=== PATIENT | female | born 1930 | race Caucasian/White ===

== ENCOUNTER 2018-05-15 15:32 | Inpatient (IN) | payer OTHER ==
[2018-05-15] MEDS ORDERED: MORPHINE 4 MG/ML SYR ONE (16:28)
[2018-05-15 16:43] LABS: Protime INR 1.11
[2018-05-15 16:45] LABS: Absolute Lymphocytes (CBC) 1.6 K/uL (0.7-4.9); Absolute Monocytes 0.4 K/uL (0.1-1.3); Absolute Neutrophil 4.4 K/uL (1.8-8.0); Basophils % 0.6 % (0-1.3); Eosinophils % 0.3 % (0-4.4); Hematocrit 28.5 % (36.0-45.0); Lymphocytes % 24.8 % (15.3-44.8); MCH 35.4 pg (27.0-35.0); MPV 7.3 fL (7.6-11.3); Monocytes % 6.1 % (3.3-12.3); RBC Red Blood Cell Count 2.74 M/uL (3.86-4.86)
--- NOTE | 2018-05-15 16:48 | RAD REPORT ---
EXAM DESCRIPTION: US - Extremity Venous Uni Ltd - 05/15/2018 4:43 pm CLINICAL HISTORY: PAIN Leg swelling and edema. COMPARISON: Extrem Venous W Compress Que dated 06/17/2016 FINDINGS: Right lower extremity venous system was interrogated with Doppler technique. Normal flow, compressibility and augmentation was noted. There is no DVT present. IMPRESSION: No evidence of right lower extremity deep venous thrombosis.
[2018-05-15 17:09] LABS: Bilirubin Direct 0.2 mg/dL (0-0.2); Bilirubin Total 0.8 mg/dL (0.2-1.0); Magnesium 1.9 mg/dL (1.8-2.4); Protein, Total 9.1 g/dL (6.4-8.2); Troponin (Emerg Dept Use Only) 0.02 ng/mL (0.0-0.045)
--- NOTE | 2018-05-15 17:14 | RAD REPORT ---
EXAM DESCRIPTION: RAD - Chest Single View - 05/15/2018 5:05 pm CLINICAL HISTORY: CHEST PAIN Chest pain. COMPARISON: Chest Single View dated 03/09/2016; CHEST SINGLE VIEW dated 10/13/2015; CHEST SINGLE VIEW da sam 09/03/2012; CHEST PA AND LAT 2 VIEW dated 06/09/2006 FINDINGS: Portable technique limits examination quality. The lungs are emphysematous. The heart is mildly enlarged in size. Soft tissue opacity seen along the left lateral thoracic cage with evidence underlying rib destruction.This could be related to a destr uctive rib lesion. CT imaging is pending at the time of this dictation.
--- NOTE | 2018-05-15 17:40 | EKG ---
Test Date: 2018-05-15 Test Time: 16:42:13 Bituminous Paving Machine Operator: AINSLEY MEASUREMENT RESULTS: Intervals: Rate: 83 VA: QRSD: 108 QT: 360 QTc: 423 [place]: P: VA: QRS: -29 T: 70 INTERPRETIVE STATEMENTS: Atrial fibrillation Abnormal ECG Compared to ECG 10/27/2016 09:07:35 SINUS BRADYCARDIA IS NO LONGER PRESENT Electronically Signed On 05-15-18 17:39:24 CDT by Asa Dai
--- NOTE | 2018-05-15 17:49 | EDPHYS ---
Physician Documentation [facility] Name: Kaden Hankins Age: 88 yrs Sex: Female : 1930 Arrival Date: 05/15/2018 Time: 15:36 Bed 27 Private MD: Glen Houston F ED Physician Michael Dominguez HPI: 05/15 17:35 This 88 yrs old Female presents to ER via Wheelchair with complaints of Pain gs All Over. 17:35 The patient presents with pain. The complaints affect the right calf. Onset: The gs symptoms/episode began/occurred 3 day(s) ago, and became worse and became persistent. Modifying factors: the symptoms are aggravated by movement. Associated signs and symptoms: Pertinent positives: back pain, flank pain. Severity of symptoms: At their worst the symptoms were severe, in the emergency department the symptoms are unchanged. The patient has experienced similar episodes in the past, multiple times. Historical: - Allergies: 15:39 Sulfa (Sulfonamide Antibiotics); aa5 - Home Meds: 15:58 amlodipine 10 mg tab 1 tab once daily [Active]; aspirin 81 mg Oral chew 1 tab once rv daily [Active]; benicar [Active]; cetirizine 10 mg Oral tab 1 tab once daily [Active]; Decadron Oral 40 mg every tuesday [Active]; Dexamethasone Oral 5 tabs on days 1,8,15,22, of each chemo cycle. [Active]; esomeprazole magnesium 40 mg Oral cpDR 1 cap once daily [Active]; hydralazine 50 mg Oral tab 1 tab TID [Active]; hydrochlorothiazide 12.5 mg Oral cap 1 cap once daily [Active]; levothyroxine 50 mcg tab 1 tab once daily [Active]; metoprolol tartrate 100 mg Oral tab 1 tab 2 times per day [Active]; Nexium 40 mg Oral cpDR 1 cap once daily [Active]; omeprazole 40 mg Oral cpDR 1 cap once daily [Active]; pravastatin 40 mg Oral tab 1 tab once daily [Active]; Revlimid 10 mg Oral cap 1 cap once daily [Active]; sotalol 80 mg Oral tab 1 tab once daily [Active]; tramadol 50 mg Oral tab 1 tab every 8 hours. [Active]; valsartan 320 mg Oral tab 1 tab once daily [Active]; - PMHx: 15:39 Heart Murmur; Hypertension; Hypothyroidism; myeloma; Oral chemotherapy; aa5 - PSHx: 15:58 Cholecystectomy; Hernia repair; rv - Immunization history:: Pneumococcal vaccine is not up to date, Flu vaccine is not up to date. - Social history:: Smoking status: Patient/guardian denies using tobacco. - Ebola Screening: : No symptoms or risks identified at this time. ROS: 17:35 All other systems are negative. gs Exam: 17:35 Head/Face: Normocephalic, atraumatic. Eyes: Pupils equal round and reactive to light, gs extra-ocular motions intact. Lids and lashes normal. Conjunctiva and sclera are non-icteric and not injected. Cornea within normal limits. Periorbital areas with no swelling, redness, or edema. ENT: Nares patent. No nasal discharge, no septal abnormalities noted. Tympanic membranes are normal and external auditory canals are clear. Oropharynx with no redness, swelling, or masses, exudates, or evidence of obstruction, uvula midline. Mucous membranes moist. Neck: Trachea midline, no thyromegaly or masses palpated, and no cervical lymphadenopathy. Supple, full range of motion without nuchal rigidity, or vertebral point tenderness. No Meningismus. Chest/axilla: Normal chest wall appearance and motion. Nontender with no deformity. No lesions are appreciated. Respiratory: Lungs have equal breath sounds bilaterally, clear to auscultation and percussion. No rales, rhonchi or wheezes noted. No increased work of breathing, no retractions or nasal flaring. Abdomen/GI: Soft, non-tender, with normal bowel sounds. No distension or tympany. No guarding or rebound. No evidence of tenderness throughout. Back: No spinal tenderness. No costovertebral tenderness. Full range of motion. Skin: Warm, dry with normal turgor. Normal color with no rashes, no lesions, and no evidence of cellulitis. Neuro: Awake and alert, GCS 15, oriented to person, place, time, and situation. Cranial nerves II-XII grossly intact. Motor strength 5/5 in all extremities. Sensory grossly intact. Cerebellar exam normal. Normal gait. 17:35 Constitutional: The patient appears alert, awake, uncomfortable. 17:35 Cardiovascular: Rate: normal, Rhythm: irregularly irregular, Pulses: no pulse deficits are appreciated, Heart sounds: normal, Edema: is not appreciated. 17:35 ECG was reviewed by the Attending Physician. 17:35 Musculoskeletal/extremity: Pulses: are normal with no appreciated deficits, Sensation intact. DVT Exam: no swelling, no appreciated bluish discoloration, no erythema, tenderness, that is moderate, of the right leg. Vital Signs: 15:40 BP 168 / 86; Pulse 98; Resp 18 S; Temp 98.9(TE); Pulse Ox 99% on R/A; Weight 49.44 kg aa5 (R); Height 5 ft. 2 in. (157.48 cm) (R); Pain 10/10; 18:16 BP 117 / 89; Pulse 109; Resp 18; Pulse Ox 96% on R/A; tl3 19:02 BP 119 / 95; Pulse 80; Resp 18; Pulse Ox 100% on R/A; tl3 15:40 Body Mass Index 19.94 (49.44 kg, 157.48 cm) aa5 MDM: 16:07 Patient medically screened. 05/15 16:10 Order name: Basic Metabolic Panel; Complete Time: 17:29 05/15 16:10 Order name: CBC with Diff; Complete Time: 17:11 05/15 16:10 Order name: LFT's; Complete Time: 17:29 05/15 16:10 Order name: Magnesium; Complete Time: 17:29 05/15 16:10 Order name: NT PRO-BNP; Complete Time: 17:29 05/15 16:10 Order name: PT-INR; Complete Time: 17:11 05/15 16:10 Order name: Troponin (emerg Dept Use Only); Complete Time: 17:29 05/15 16:10 Order name: XRAY Chest (1 view); Complete Time: 17:29 05/15 16:10 Order name: CPK; Complete Time: 17:29 05/15 17:55 Order name: Basic Metabolic Panel EDMI 05/15 17:55 Order name: Basic Metabolic Panel EDMI 05/15 19:36 Order name: Urine Dipstick--Ancillary (enter results) ms 05/15 20:05 Order name: Urine Dipstick-Ancillary EDMI 05/15 16:10 Order name: EKG; Complete Time: 16:11 05/15 16:10 Order name: Cardiac monitoring; Complete Time: 16:38 gs 05/15 16:10 Order name: EKG - Nurse/Tech; Complete Time: 16:38 gs 05/15 16:10 Order name: IV Saline Lock; Complete Time: 16:38 gs 05/15 16:10 Order name: Labs collected and sent; Complete Time: 16:38 gs 05/15 16:10 Order name: O2 Per Protocol; Complete Time: 16:38 gs 05/15 16:10 Order name: O2 Sat Monitoring; Complete Time: 16:38 gs 05/15 16:14 Order name: US Extremity Venous Unilateral Ltd; Complete Time: 17:11 gs 05/15 17:43 Order name: Chest Abd Pelvis Wo Con; Complete Time: 18:33 EDMS 05/15 17:55 Order name: CONS Physician Consult EDMS 05/15 17:55 Order name: Regular EDMS EC:35 Rate is 83 beats/min. Rhythm is regular. QRS interval is prolonged. QT interval is gs normal. T waves are Normal. No ST changes noted. Clinical impression: Atrial Fibrillation. Interpreted by me. Administered Medications: 16:24 Drug: morphine 2 mg Route: IVP; Site: right antecubital; rv 18:18 Follow up: Response: Pain is decreased tl3 20:16 Follow up: Response: Pain is decreased rv 18:17 Drug: Pamidronate 60 mg Route: IV; Rate: calculated rate; Infused Over: 2 hrs; Site: tl3 right antecubital; Delivery: Primary tubing; 19:03 Follow up: IV Status: Infusion continued upon admission tl3 20:15 Follow up: IV Status: Infusion continued upon admission rv 18:18 Drug: NS 0.9% 1000 ml Route: IV; Rate: 125 ml/hr; Site: right antecubital; Delivery: tl3 Primary tubing; 19:03 Follow up: IV Status: Infusion continued upon admission tl3 20:16 Follow up: IV Status: Infusion continued upon admission rv Disposition: 05/15/18 17:49 Hospitalization ordered by Glen Houston for Inpatient Admission. Preliminary diagnosis is Hypercalcemia. - Bed requested for Telemetry/MedSurg (Inpatient). - Status is Inpatient Admission. rv - Condition is Stable. - Problem is new. - Symptoms have improved. UTI on Admission? No Signatures: Dispatcher [employer] EDMI Dari Sykes, RN RN aa5 Danika Dennis RN RN df Micahel Dominguez MD MD Sheela Thomas RN RN tl3 Alonso Kimbrough, RN RN rv Corrections: (The following items were deleted from the chart) 17:43 16:11 Chest Abdomen Pelvis W Con+CT.RAD.BRZ ordered. EDMI EDMI 18:43 17:49 Hospitalization Ordered by Glen Houston MD for Inpatient Admission. Preliminary df diagnosis is Hypercalcemia. Bed requested for Telemetry/MedSurg (Inpatient). Status is Inpatient Admission. Condition is Stable. Problem is new. Symptoms have improved. UTI on Admission? No. 20:18 18:43 05/15/2018 17:49 Hospitalization Ordered by Glen Houston MD for Inpatient rv Admission. Preliminary diagnosis is Hypercalcemia. Bed requested for Telemetry/MedSurg (Inpatient). Status is Inpatient Admission. Condition is Stable. Problem is new. Symptoms have improved. UTI on Admission? No. df
--- NOTE | 2018-05-15 17:49 | ER ---
Nurse's Notes [facility] Name: Kaden Hankins Age: 88 yrs Sex: Female : 1930 Arrival Date: 05/15/2018 Time: 15:36 Bed 27 Private MD: Glen Houston F Diagnosis: Hypercalcemia Presentation: 05/15 15:38 Presenting complaint: Patient states: octavia shoulder pain and right lower back pain that aa5 began 2 days ago. Transition of care: patient was not received from another setting of care. Onset of symptoms was May 2018. Risk Assessment: Do you want to hurt yourself or someone else? Patient reports no desire to harm self or others. Initial Sepsis Screen: Does the patient meet any 2 criteria? No. Patient's initial sepsis screen is negative. Does the patient have a suspected source of infection? No. Patient's initial sepsis screen is negative. Care prior to arrival: None. 15:38 Method Of Arrival: Wheelchair aa5 15:38 Acuity: NAREN 3 aa5 Historical: - Allergies: 15:39 Sulfa (Sulfonamide Antibiotics); aa5 - Home Meds: 15:58 amlodipine 10 mg tab 1 tab once daily [Active]; aspirin 81 mg Oral chew 1 tab once rv daily [Active]; benicar [Active]; cetirizine 10 mg Oral tab 1 tab once daily [Active]; Decadron Oral 40 mg every tuesday [Active]; Dexamethasone Oral 5 tabs on days 1,8,15,22, of each chemo cycle. [Active]; esomeprazole magnesium 40 mg Oral cpDR 1 cap once daily [Active]; hydralazine 50 mg Oral tab 1 tab TID [Active]; hydrochlorothiazide 12.5 mg Oral cap 1 cap once daily [Active]; levothyroxine 50 mcg tab 1 tab once daily [Active]; metoprolol tartrate 100 mg Oral tab 1 tab 2 times per day [Active]; Nexium 40 mg Oral cpDR 1 cap once daily [Active]; omeprazole 40 mg Oral cpDR 1 cap once daily [Active]; pravastatin 40 mg Oral tab 1 tab once daily [Active]; Revlimid 10 mg Oral cap 1 cap once daily [Active]; sotalol 80 mg Oral tab 1 tab once daily [Active]; tramadol 50 mg Oral tab 1 tab every 8 hours. [Active]; valsartan 320 mg Oral tab 1 tab once daily [Active]; - PMHx: 15:39 Heart Murmur; Hypertension; Hypothyroidism; myeloma; Oral chemotherapy; aa5 - PSHx: 15:58 Cholecystectomy; Hernia repair; rv - Immunization history:: Pneumococcal vaccine is not up to date, Flu vaccine is not up to date. - Social history:: Smoking status: Patient/guardian denies using tobacco. - Ebola Screening: : No symptoms or risks identified at this time. Screenin:54 Abuse screen: Denies threats or abuse. Denies injuries from another. Nutritional rv screening: No deficits noted. Tuberculosis screening: No symptoms or risk factors identified. Fall Risk None identified. Assessment: 15:53 General: Appears in no apparent distress. uncomfortable, Behavior is calm, cooperative. rv Pain: Complains of pain in back. Neuro: Level of Consciousness is awake, alert, obeys commands, Oriented to person, place, time, situation. Cardiovascular: Capillary refill < 3 seconds. Respiratory: Airway is patent. GI: No signs and/or symptoms were reported involving the gastrointestinal system. : No signs and/or symptoms were reported regarding the genitourinary system. EENT: No signs and/or symptoms were reported regarding the EENT system. Derm: Skin is intact. 18:16 Reassessment: Patient and/or family updated on plan of care and expected duration. Pain tl3 level reassessed. Patient is alert, oriented x 3, equal unlabored respirations, skin warm/dry/pink. pt anxious about being admitted. 19:02 Reassessment: No changes from previously documented assessment. Patient and/or family tl3 updated on plan of care and expected duration. Pain level reassessed. Patient is alert, oriented x 3, equal unlabored respirations, skin warm/dry/pink. Vital Signs: 15:40 BP 168 / 86; Pulse 98; Resp 18 S; Temp 98.9(TE); Pulse Ox 99% on R/A; Weight 49.44 kg aa5 (R); Height 5 ft. 2 in. (157.48 cm) (R); Pain 10/10; 18:16 BP 117 / 89; Pulse 109; Resp 18; Pulse Ox 96% on R/A; tl3 19:02 BP 119 / 95; Pulse 80; Resp 18; Pulse Ox 100% on R/A; tl3 15:40 Body Mass Index 19.94 (49.44 kg, 157.48 cm) aa5 ED Course: 15:36 Patient arrived in ED. mr 15:36 Glen Houston MD is Private Physician. mr 15:38 Triage completed. aa5 15:38 Arm band placed on. aa5 15:47 Michael Dominguez MD is Attending Physician. gs 15:59 Patient has correct armband on for positive identification. Bed in low position. Call rv light in reach. Side rails up X2. Adult w/ patient. Pulse ox on. NIBP on. 16:20 Inserted saline lock: 20 gauge in right antecubital area, using aseptic technique. rv Blood collected. 16:20 Initial lab(s) drawn, by me, sent to lab. EKG done, by medical chief technician. reviewed by Michael Dominguez MD X-ray(s) taken. ultrasound of LE. 16:42 US Extremity Venous Unilateral Ltd In Process Unspecified. EDMS 16:45 EKG done, by medical chief technician. reviewed by Michael Dominguez MD. sm3 17:05 XRAY Chest (1 view) In Process Unspecified. EDMS 17:48 Glen Houston MD is Hospitalizing Provider. gs 17:50 Sheela Thomas, RN is Primary Nurse. tl3 18:[address] via stretcher. nj 19:01 No provider procedures requiring assistance completed. tl3 20:17 Patient admitted, IV remains in place. intact. rv Administered Medications: 16:24 Drug: morphine 2 mg Route: IVP; Site: right antecubital; rv 18:18 Follow up: Response: Pain is decreased tl3 20:16 Follow up: Response: Pain is decreased rv 18:17 Drug: Pamidronate 60 mg Route: IV; Rate: calculated rate; Infused Over: 2 hrs; Site: tl3 right antecubital; Delivery: Primary tubing; 19:03 Follow up: IV Status: Infusion continued upon admission tl3 20:15 Follow up: IV Status: Infusion continued upon admission rv 18:18 Drug: NS 0.9% 1000 ml Route: IV; Rate: 125 ml/hr; Site: right antecubital; Delivery: tl3 Primary tubing; 19:03 Follow up: IV Status: Infusion continued upon admission tl3 20:16 Follow up: IV Status: Infusion continued upon admission rv Outcome: 17:49 Decision to Hospitalize by Provider. louise 20:16 Admitted to Med/surg accompanied by tech, via stretcher, room 216, with chart, Report rv called to ALVINA 20:16 Condition: good 20:16 Instructed on the need for admit. 20:18 Patient left the ED. rv Signatures: Dispatcher [employer] EDVA Radha Espinoza mr Sykes, Dari, RN RN aa5 Surya Kothari Gregory, MD MD Sheela Thomas RN RN tl3 Ellie Muller 3 Alonso Kimbrough RN RN rv
[2018-05-15] MEDS: NA CHLORIDE 0.9% 1,000 ML IV SCH (18:00)
[2018-05-15] MEDS ORDERED: NA CHLORIDE 0.9% 1,000 ML ONE (18:07)
[2018-05-15] MEDS ORDERED: PAMIDRONATE DISOD 30 MG VIAL IV ONE (18:07)
[2018-05-15] MEDS ORDERED: NA CHLORIDE 0.9% 500 ML ONE (18:12)
--- NOTE | 2018-05-15 18:32 | RAD REPORT ---
EXAM DESCRIPTION: CT - Chest Abd Pelvis Wo Con - 05/15/2018 6:03 pm CLINICAL HISTORY: Chest pain, back pain, shoulder pain, abdominal pain, prior cholecystectomy and he rnia repair, history of multiple myeloma COMPARISON: None. TECHNIQUE: Axial 5 millimeter thick images of the chest abdomen and pelvis were obtained without ora l or IV contrast. All CT scans are performed using dose optimization technique as appropriate and may include automated exposure control or mA/KV adjustment according to patient size. FINDINGS: Scarring changes are present in the lung parenchyma. No acute consolidated infiltrate. Par enchymal scarring changes are present. A few small areas of reticulonodular opacification present. Th claudia could be minimal infiltrative changes. These are minimal. No pneumothorax or pleural effusion. A 3.7 centimeter expansile lesion is present in the lateral left eighth rib. Mediastinal and hilar reg ions show no mass or lymphadenopathy. No cardiomegaly or pericardial effusion. Valve and Coronary ar breonna calcifications are present. Moderate-size hiatal hernia is present. Aorta and pulmonary arterial tree is assessment is limited in the absence of contrast. 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 The liver, spleen and pancreas show no significant findings. Gallbladder is absent. No biliary tree dilatation. No hydronephrosis or obstructing calculus. Bilateral hyperdense and hypodense renal masses are presen t believed to be simple and high protein content cysts. Full assessment is limited in the absence of contrast. Probability of a significant renal finding is felt to be low. No urinary bladder abnormalit y. Uterus and ovaries show no suspicious findings. A 3 centimeter left adrenal mass is present. Atten uation value is less than 8 Hounsfield units which would favor incidental adrenal adenoma. No gastric dilatation or wall thickening. No dilated large or small bowel abnormality. Sigmoid divert iculosis is present. No acute diverticulitis or active GI process seen. No free air, free fluid or in flammatory stranding. No bulky lymphadenopathy. Patient has a 6 centimeter fat only umbilical hernia . Scattered lytic changes are present throughout all aspects of the skeleton including the expansile le bria in the left eighth rib. No compression fracture or pending compression fracture in the spine. No pathologic pelvic fracture. IMPRESSION: Multiple myeloma changes are present throughout the skeleton including an expansile 3.7 centimeter lesion in the lateral left eighth rib. No compression fracture in the spine and no impending fracture identified. No bulky lymphadenopathy seen. Nonacute findings detailed in the body of the report.
[2018-05-15 20:04] LABS: Urine Blood 1+ (NEG); Urine Glucose NEGATIVE (NEG); Urine Protein 2+ (NEG)
[2018-05-15] MEDS: ACETAMINOPHEN 500 MG TAB PO PRN (21:39)
[2018-05-15 23:57] VITALS: BMI 19.9
[2018-05-16] MEDS: NA CHLORIDE 0.9% 1,000 ML IV SCH ×3 (03:42→22:09)
[2018-05-16 05:52] LABS: Potassium 3.6 mmol/L (3.5-5.1)
[2018-05-16] MEDS: ACETAMINOPHEN 500 MG TAB PO PRN (07:59)
[2018-05-16] MEDS ORDERED: LENALIDOMIDE 10 MG PO SCH (12:00)
[2018-05-16] MEDS: AMLODIPINE 10 MG TAB PO SCH (13:08)
[2018-05-16] MEDS: HYDROCODONE/APAP 7.5/325 MG TAB PO PRN ×2 (13:08→22:12)
[2018-05-16] MEDS: SOTALOL HCL 80 MG TAB PO SCH ×2 (13:09→22:08)
[2018-05-16] MEDS: ENOXAPARIN 40 MG/0.4 ML SQ SCH (22:07)
[2018-05-16] MEDS: HYDRALAZINE HCL 25 MG TABLET PO SCH (22:08)
[2018-05-16] MEDS: ATORVASTATIN 10 MG TAB PO SCH (22:08)
[2018-05-17] MEDS: NA CHLORIDE 0.9% 1,000 ML IV SCH ×3 (05:06→20:31)
[2018-05-17] MEDS: LEVOTHYROXINE SOD 0.075 MG TAB PO SCH (05:06)
[2018-05-17] MEDS: HYDROCODONE/APAP 7.5/325 MG TAB PO PRN ×3 (05:06→20:30)
[2018-05-17] MEDS: PANTOPRAZOLE 40MG TABLET PO SCH (06:28)
[2018-05-17 06:40] LABS: Absolute Monocytes 0.4 K/uL (0.1-1.3); Absolute Neutrophil 3.5 K/uL (1.8-8.0); Basophils % 0.5 % (0-1.3); Eosinophils % 3.2 % (0-4.4); Hematocrit 22.3 % (36.0-45.0); Lymphocytes % 19.6 % (15.3-44.8); MCH 35.8 pg (27.0-35.0); MCV 103.2 fL (80-100); MPV 7.6 fL (7.6-11.3); Monocytes % 7.2 % (3.3-12.3); RBC Red Blood Cell Count 2.16 M/uL (3.86-4.86)
[2018-05-17 06:47] LABS: Potassium 3.4 mmol/L (3.5-5.1)
--- NOTE | 2018-05-17 08:34 | HP ---
Date of Admission: 05/15/2018 History Of Present Illness: An 88-year-old female with history of multiple myeloma. I have not seen this patient for about a year and half during which she was seeing the Oncology people here in [place] and following up with them on that. However, she came to emergency room complaining of both shoulders hurting for the past few days more so than she could handle, and she also had some right le g pain. The patient had no fever and no chills. She voiced no other complaints. Review of Systems: Skeletomuscular: As above. Cardiovascular: No complaint. Genitourinary: No complaint. Gastrointestinal: No complaint. Neurological: No complaint. Past Medical History: Includes: 1.As above, multiple myeloma. 2.Hypertension. 3.Hypothyroidism. 4.Gastroesophageal reflux disease. 5.Hyperlipidemia. 6.The patient has had cholecystectomy and hernia repair. Social History: No smoking, alcohol, or drug abuse history. Family History: Noncontributory. Medications: Include amlodipine 10 mg p.o. daily, dexamethasone 40 mg p.o. every , Revlimid 10 mg p.o. daily, levothyroxine 75 mcg p.o. daily, omeprazole 40 mg p.o. daily, pravastatin 40 mg p.o . daily, and sotalol 80 mg p.o. b.i.d. Allergies: SULFA. Physical Examination: Vital Signs: Blood pressure was 190/86, pulse 67, temperature 98.4. Heart: Regular rate and rhythm. Chest: Clear to auscultation. Abdomen: Soft, nontender. No hepatosplenomegaly. Bowel sounds are normoactive. Extremities: No edema. No cyanosis. Peripheral pulses are felt. Neurological Examination: Alert, oriented, nonfocal. Grossly intact. Skeletomuscular: Both shoulders, the patient has some pain in moving them, but no deformity. Diagnostic Data: Chest x-ray showed soft tissue opacity along the left lateral thoracic cage underly ing good . Abdominal and chest and pelvic CT showed multiple myeloma changes throughout th e skeleton with the left eighth rib lesion at 3.7 cm. No compression fracture. No bulk lymphadenopa thy. No acute findings at this time. Electrocardiogram showed atrial fibrillation. Extremities félix ous studies showed no DVT. The patient's hemoglobin 9.7, hematocrit 28.5, MCV 104, platelets 232. Chemistry: Calcium 13.1, it went down to 12. Chloride 111, BUN 54, creatinine 2.1. Urinalysis: 1+ esterase, positive 2+ protei ns. Assessment: 1.Hypercalcemia. 2.Acute renal insufficiency. 3.Multiple myeloma. 4.Atrial fibrillation. 5.Hypertension. 6.Anemia of chronic illness. Plan: 1.We would go ahead. I have started the patient on IV fluids and we will monitor her calcium level if this started to drop. 2.We will put the patient on Lortab 7.5 t.i.d. p.r.n. for shoulder pains and we will go ahead and as k Oncology consult for her multiple myeloma. We will ask Cardiology consult for her atrial fibrillat ion for me is new. 3.We will put the patient on Lovenox and we will monitor her studies, her CBC. 4.We are going to go ahead and also renew her home medicines for chronic medical illnesses. We will put her on hydralazine p.r.n. for uncontrolled hypertension. Look orders for details. MFS/MODL Voice ID: [id number]
[2018-05-17] MEDS: ENOXAPARIN 40 MG/0.4 ML SQ SCH (09:00)
[2018-05-17] MEDS: HYDRALAZINE HCL 25 MG TABLET PO SCH ×4 (09:55→20:29)
[2018-05-17] MEDS: AMLODIPINE 10 MG TAB PO SCH (09:56)
[2018-05-17] MEDS: SOTALOL HCL 80 MG TAB PO SCH ×2 (09:56→20:30)
[2018-05-17] MEDS ORDERED: FUROSEMIDE 20 MG/ 2ML VIAL IV ONE (11:10)
--- NOTE | 2018-05-17 13:01 | PN ---
Subjective: The patient today has no new complaints. Objective: Vital Signs: Blood pressure 195/82, pulse 61, temperature 98.3. Heart: Regular rate and rhythm. Chest: Clear to auscultation. Abdomen: Soft. Benign. Neurological examination: Alert, oriented, nonfocal. Grossly intact. Skeletomuscular exam: No change. Laboratory Data: The patient's hemoglobin this morning is 7.7, hematocrit 22.3, platelets 191. Pota ssium 3.4, BUN 44, creatinine 1.9, calcium down to 10.8. Assessment/plan: 1.Multiple myeloma with bone lytic lesion. Appreciate Hematology/Oncology input. We will follow th e recommendation. We will continue Lortab for pain control. 2.Hypertension in part not controlled due to the IV fluids. We will give 1 dose of Lasix IV 20 mg a nd also will increase hydralazine to 50 mg p.o. t.i.d. and continue the rest of her treatment. 3.We will put the patient on electrolyte protocol. 4.We will transfuse 1 unit of blood. We will stop the patient's Lovenox. She is on sequential comp ression devices for now. We will monitor her hemoglobin and hematocrit. Look orders for details. MFS/MODL Voice ID: [id number] Report ID: [id number]
[2018-05-17] MEDS ORDERED: NA CHLORIDE 0.9% 250 ML ONE (13:22)
[2018-05-17] MEDS ORDERED: MORPHINE 4 MG/ML SYR IV ONE (14:11)
[2018-05-17] MEDS ORDERED: FENTANYL 25 MCG/PATCH TD SCH (14:30)
--- NOTE | 2018-05-17 14:53 | CON ---
Reason For Consult: Atrial fibrillation. History Of Present Illness: Ms. Hankins has had atrial fibrillation in the past. We had her on Betapac e. At some point, she stopped taking it. She has no idea when she stopped. She does not really kno w when she is in atrial fibrillation, but she had some success taking Betapace. We actually had her on 40 mg twice a day. Yesterday Dr. Houston started 80 twice a day. I think that is okay to give, a lthough at the time she goes home, we should probably believe in the history of things, believe that lower doses of medicines are good in 88-year-old people, who are small, and reduce her dose to 40 b.i .d. as an outpatient. She is not a patient who could be anticoagulated. She has bone marrow failure with multiple myeloma. She still has a good platelet count and is taking aspirin and tolerating it well. I am unable to tell from the patient or family members or notes whether she is on any specific chemotherapy agents for her multiple myeloma. Listed but dated as long ago as 2 years ago is Revlim id and dexamethasone. I am not sure if she has been taking those recently or not. Overnight, she aguirre s had a dramatic fall in her hemoglobin. Her hemoglobin today is 7.7. She came to our hospital on t may, this is the . Her chief complaint was pain in the shoulder joints, when she m oves her shoulder joint that hurts a lot. She has never had myocardial infarction or stroke or any v ascular interventions. Uses no tobacco. Does not use alcohol or alcoholic beverages. Physical Examination: General: 5 feet 2, 109 pounds. Alert, oriented. Lungs: Clear. Heart: Irregularly irregular. Vital Signs: Blood pressure 195/82, heart rate 61, but the heart rate on telemetry is more in the 90 s. Recommendation: I think we should continue with the Betapace, see if we can reestablish sinus rhythm . If we cannot, then I would vote for rate control alone and aspirin. Thank you very much for your kind referral of Ms. Hankins. I will follow her with you. EDITA/MARKO Voice ID: [id number] Report ID: [id number]
[2018-05-17 18:55] LABS: Hematocrit 27.4 % (36.0-45.0)
[2018-05-17] MEDS: ATORVASTATIN 10 MG TAB PO SCH (20:30)
--- NOTE | 2018-05-17 20:52 | PN ---
Date of Progress Note: 05/17/2018 Reason For Visit: Hypercalcemia, multiple myeloma. Brief History Of Present Illness: Ms. Hankins is an 88-year-old lady, who is well known to my partner, Dr. Harrison, she has been followed for a diagnosis of multiple myeloma since 2015. She was diagno sed with multiple myeloma in March of 2016 when she presented with severe anemia and hypogammaglobul inemia, a bone marrow biopsy confirmed the diagnosis of multiple myeloma. She was reluctant to under go therapy, but finally did decide to start on Revlimid plus Decadron for her multiple myeloma. Over the past 2 years, she admits to being noncompliant and missing doses of the Revlimid as a result she did have somewhat of a response to therapy. When last seen in clinic on February 01, 2018, overall the monoclonal protein had decreased by more than 50% suggestive of a partial response. She presented to the Emergency Room 2 days ago with complaints of severe generalized bone pain and so me confusion. Calcium level was noted to be elevated at 13 mg/dL, BUN and creatinine were elevated a t 54 and 2.2 respectively. Her hemoglobin was 9.7 g/dL with a normal white count and platelet count. A CT scan of the chest, abdomen and pelvis revealed multiple bony lesions throughout the skeleton w ith an expansile lesion in the left eighth rib. There was no evidence of compression fractures or pa thological fractures. Since hospitalization, she has received pamidronate 60 mg IV and hydration and seems to be feeling be tter. Subjective: Ms. Hankins was receiving a transfusion and resting comfortably when I saw her this evening . She did have a pain earlier on and received morphine IV, which helped. She denies any nausea or v omiting. She admits to not remembering much about this hospitalization. Objective: vital Signs: Reveal that she has been afebrile. Temperature was 98.2 Fahrenheit at noon today, pulse 60, blood pressure 180/74. General: Reveals pallor and a frail elderly lady, in no acute distress. Chest: Clear to auscultation. Heart: Sounds were normal. Extremities: Shows no edema. Assessment And Plan: 1.Hypercalcemia. This is secondary to progressive multiple myeloma. Her calcium levels have been d eclining with hydration and pamidronate, no further intervention is warranted at this time. If she d ecides to pursue further treatment. She will be placed on zoledronic acid q.4 weeks for bone disease as well as control of hypercalcemia. 2.Multiple myeloma, stage III. The patient has been reluctant and noncompliant with therapy since yoli patiño in 2015. I discussed her options going forward. A: Pursue further therapy likely Velcade subcutaneously weekly plus dexamethasone or intravenous carfilzomib plus Decadron or dexamethasone. In either case, she would need known oral therapy. Option B: Would be best supportive care, stacy estrada in the setting of hospice. Ms. Hankins seems to indicate that she was not be interested in treatmen t, though her daughter was noncommittal. I urge them to discuss this as a family and come up with a decision regarding further management. We did discuss that multiple myeloma is not a curable cancer and that the goal of treatment would be to palliate symptoms, prevent complications, and prolong her survival modestly. 3.Anemia. 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 Once ag ain, she is noncompliant with Aranesp. I would suggest to transfuse packed red blood cells to keep h emoglobin at 8 g/dL normal, given her advanced age and comorbidities which includes myeloma. 4.Pain management. She is in significant pain from bony disease. I started her on a fentanyl patch 25 mcg q.72 hours. I would suggest to continue with that. She should be getting hydrocodone/Tyleno l 5/325 1-2 tablets every 4 hours as needed for breakthrough pain. 5.I have discussed the above recommendations with Dr. Houston as well. She may be discharged home o n hospice if that is what she chooses. If she is unable or unwilling to make a decision then she should follow up with Dr. Harrison in clinic on the 24 of May as scheduled. AP/MODL Voice ID: [id number] Report ID: [id number]
[2018-05-18] MEDS: PANTOPRAZOLE 40MG TABLET PO SCH (05:19)
[2018-05-18] MEDS: LEVOTHYROXINE SOD 0.075 MG TAB PO SCH (05:19)
[2018-05-18] MEDS: NA CHLORIDE 0.9% 1,000 ML IV SCH ×2 (05:20→16:00)
[2018-05-18 06:05] LABS: Absolute Lymphocytes (CBC) 1.2 K/uL (0.7-4.9); Absolute Monocytes 0.5 K/uL (0.1-1.3); Absolute Neutrophil 5.1 K/uL (1.8-8.0); Basophils % 0.3 % (0-1.3); Eosinophils % 2.1 % (0-4.4); Hematocrit 26.4 % (36.0-45.0); Lymphocytes % 17.7 % (15.3-44.8); MCV 100.9 fL (80-100); MPV 7.3 fL (7.6-11.3); Monocytes % 7.2 % (3.3-12.3); RBC Red Blood Cell Count 2.61 M/uL (3.86-4.86)
[2018-05-18 06:11] LABS: Potassium 3.4 mmol/L (3.5-5.1)
[2018-05-18] MEDS ORDERED: POTASSIUM CL SA 10 MEQ TAB PO ONE (06:32)
[2018-05-18 09:06] VITALS: O2SAT 97
[2018-05-18] MEDS: HYDRALAZINE HCL 25 MG TABLET PO SCH ×2 (09:13→13:52)
[2018-05-18] MEDS: SOTALOL HCL 80 MG TAB PO SCH (09:13)
[2018-05-18] MEDS: AMLODIPINE 10 MG TAB PO SCH (09:14)
[2018-05-18 15:34] VITALS: BP 119/62; TEMP 98.6
--- NOTE | 2018-05-18 20:20 | PN ---
Subjective: The patient has no new complaints. Objective: Vital Signs: Blood pressure 120/60, pulse 64, temperature 98.6. Heart: Regular rate and rhythm. Chest: Clear to auscultation. Abdomen: Soft. Benign. Neurologic: Alert, oriented, intact. Extremities: No edema. No cyanosis. Laboratory Data: The patient's hemoglobin 9.2, hematocrit 26.4, and platelet 2014. Chemistry; BUN 3 9, creatinine 1.80, potassium 3.4, calcium 9.9. Assessment And Plan: 1.Hypercalcemia, resolved. 2.Multiple myeloma. I have talked with Dr. Faith, Oncology/Hematology on the patient's condition. S he informed me that this patient has not been following up with treatments and care with Oncology and that her son and daughter make decisions for her about her health care, and at this point, they have to decide if they want her only treatment for comfort, we will ask hospice care. However, they want to pursue active treatment, they need to make sure that they have the patient follow up with the onc ology team in the oncology clinic for her multiple myeloma for medications and also to keep up with h er hypercalcemia and liver medications with infusions to lower the calcium when that happens. Otherw ise, if they choose hospice, then we will go that route. I have explained that to the patient and pe nding the patient and her children's decision on this, we will continue current treatment. Her blood pressure is better controlled at this time and s he is clinically stable. MFS/MODL Voice ID: [id number] Report ID: [id number]
[2018-05-19 02:58] LABS: Immunoglobulin A 19 mg/dL (81-463); Immunoglobulin G 3053 mg/dL (694-1618); Immunoglobulin M 5 mg/dL (48-271)
--- NOTE | 2018-05-19 13:33 | DS ---
Date of Discharge: 05/18/2018 History Of Present Illness: An 88-year-old female, who was admitted to the hospital because of multi ple myeloma with bone lesions causing bilateral shoulder pains and also for hypercalcemia from that. Past Medical History: As per admit note. Social History: As per admit note. Family History: As per admit note. Medications: As per admit note. Allergies: PER ADMIT NOTE. Physical Examination: As per admit note. Diagnostic Data: As per admit note. Hospital Course: The patient was admitted to the hospital. She was put on IV fluids and later had t o give her 1 dose of IV Lasix, dropped down her calcium and her level was 9.9 today. The patient als o was seen by Oncology, Dr. Vincent, who put her on steroids and continue the rest of her home medications for her multiple myeloma. I have discussed the case with Dr. Vincent and the inf ormation I got that the patient was not following regularly with them as she should. But however, timbo talked with the patient and her daughter today and I just finished talking with the daughter and ey are going to follow up exactly with Oncology as per Oncology for her medical problem of multiple m yeloma and as the patient is stable enough today and she is feeling well and has no problems, we will go ahead and discharge her. The patient and the daughter know the importance of following up with O ncology for treatments and also to avoid hypercalcemia. Also during her hospital stay, her blood pre ssure on IV fluids went high. However, she was put on hydralazine 50 mg p.o. t.i.d. on top of the re st of her home medicines and she did well with that. The patient is to followup with Oncology and followup with me. Look discharge orders for joão MFS/MODL Voice ID: [id number] Report ID: [id number]
[2018-05-19 21:08] LABS: Albumin, (SPE) 2.8 g/dL (3.8-4.8); Alpha-1-Globulins 0.3 g/dL (0.2-0.3); Alpha-2-Globulins 0.6 g/dL (0.5-0.9); Gamma Globulins 2.5 g/dL (0.8-1.7); INTERPRETATION REPORT
[2018-05-23] MEDS ORDERED: DEXAMETHASONE 4 MG TAB PO SCH (09:00)
== END 2018-05-18 16:42 | disposition home or self-care (01) | DRG 842 ==
LOC: ER 15:32 → ERHOLD 17:52 → 2ND 19:51
PROVIDERS: ADMIT Internal Medicine; ATTEND Internal Medicine
PROC: 30233N1 Transfusion of Nonautologous Red Blood Cells into Peripheral Vein, Percutaneous Approach (ICD-10-PCS; principal; 2018-05-17)
DX: C90.00 Multiple myeloma not having achieved remission (principal); I10 Essential (primary) hypertension; E03.9 Hypothyroidism, unspecified; K21.9 Gastro-esophageal reflux disease without esophagitis; E78.5 Hyperlipidemia, unspecified; Z88.2 Allergy status to sulfonamides; E83.52 Hypercalcemia; N28.9 Disorder of kidney and ureter, unspecified; I48.91 Unspecified atrial fibrillation; D63.8 Anemia in other chronic diseases classified elsewhere; M89.9 Disorder of bone, unspecified; Z91.19 Patient's noncompliance with other medical treatment and regimen
CPT/HCPCS: 36415; 71045; 71250; 74176; 80048; 80076; 81003; 82550; 82784; 83735; 83880; 84100; 84132; 84165; 84484; 85014; 85018; 85025; 85610; 86334; 86850; 86900; 86901; 93005; 93971; 96365; 96375; 99285; J1650; J1940; J2430; J7030; P9016